=== PATIENT | female | born 1955 | race Caucasian/White ===

== ENCOUNTER 2025-06-26 03:01 | Emergency (ER) | payer MEDICARE, OTHER ==
[2025-06-26 03:32] LABS: BASOPHILS 0.4 % (0.1-1.2); EOSINOPHILS 0.8 % (0.7-5.8); LYMPHOCYTES 16.7 % (19.3-51.7); MCH 32.3 PG (25.6-32.2); MCHC 34.4 g/dL (32.2-35.5); MCV 93.9 fL (79.4-94.8); MONOCYTES 6.4 % (4.7-12.5); NEUTROPHILS 75.5 % (34.0-71.1); RBC 4.43 M/uL (3.93-5.22)
[2025-06-26 03:53] LABS: ALT (SGPT) 20.0 U/L (14-59); AST (SGOT) 16.0 U/L (15-37); GLOMERULAR FILTRATION RATE,EST 99.0 mL/min (>60); PROTEIN, TOTAL 7.3 g/dL (6.4-8.2); UREA NITROGEN 8.0 mg/dL (7-18)
[2025-06-26 04:42] LABS: BLOOD/HGB, URINE TRACE-I (Negative); KETONE, URINE NEGATIVE (Negative); LEUK ESTERASE, URINE NEGATIVE (negative); NITRITE, URINE NEGATIVE (negative)
[2025-06-26] MEDS ORDERED: ONDANSETRON ODT8 MG PO (04:43)
[2025-06-26] MEDS ORDERED: PROTONIX40 MG PO (04:43)
[2025-06-26] MEDS ORDERED: ONDANSETRON 4 MG HOME.PACK SL ONE (04:45)
[2025-06-26] MEDS ORDERED: PANTOPRAZOLE SODIUM 40 MG TABEC PO ONE (04:45)
[2025-06-26 04:50] LABS: BACTERIA, URINE NONE SEEN /hpf (negative); CASTS, URINE NONE SEEN \\lpf; CRYSTALS, URINE NONE SEEN (0-1+); EPITHELIAL CELLS, URINE SQUAMOUS 2+ /lpf (0-1+); REFLEX CULTURE, URINE No (No)
[2025-06-26 04:56] VITALS: BP 131/77
== END 2025-06-26 04:58 | disposition home or self-care (01) ==
LOC: ED 03:01
PROVIDERS: Emergency Medicine
DX: R10.10 Upper abdominal pain, unspecified (principal); Z88.2 Allergy status to sulfonamides; Z88.8 Allergy status to other drugs, medicaments and biological substances
CPT/HCPCS: 36415; 74177; 80053; 81001; 83690; 85025; 96374; 99284-25; A9270; J2405; Q9967